=== PATIENT | male | born 2005 | race Caucasian/White ===

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

== ENCOUNTER 2025-04-25 08:32 | Outpatient (RCR) | payer OTHER, SELFPAY ==
--- NOTE | 2025-04-25 09:47 | PTOPEVAL1 ---
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 He reports he felt a pop in the front of the R shoulder. He reports he worked for the rest of the day and the day after and was not getting any better. He reports he went to urgent care for an x-ray. They thought he dislocated his shoulder. He was then sent to [place] to be on light duty where he got an MRI on 04/14/25 that did not show anything. He reports he does not currently have a follow up appointment. He reports that he has pain with dressing, sleeping, and reaching. He reports he ices his shoulder. 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 He is currently not working. Reported Pain Level Pain Score 7: Self Report Assessment PT Clinical Summary Mr. Maya is a 19 year old male who presents to PT with R shoulder pain following injury at work. He demonstrates decreased active and passive ROM of the R shoulder as well as decreased shoulder strength. He has increased pain with sleeping, dressing, and reaching and is current off work at this time. He will benefit from skilled PT to address impairments and return to work at [employer]. Plan of Care Interventions Electrical Stimulation,Hot Pack/Cold Pack,Manual Therapy,Neuro Re-education,Patient/Caregiver Education,Therapeutic Activities,Therapeutic Exercise PT Services Indicated Yes Treatment Frequency and 3x weekly for 12 visits Duration These treatments will address the objective and functional deficits as defined above. The patient will be advanced safely and appropriately in order for the patient to progress towards his/her prior level of function. Additional exercises will be introduced and as well as a comprehensive home exercise program upon discharge, if needed, ?to ensure carryover of functional gains achieved in the clinic. This treatment plan has been reviewed and agreement upon by the patient.
--- NOTE | 2025-04-28 07:11 | PCPTNOTE ---
Cancelled session. Has to find a new MD in this area.
--- NOTE | 2025-06-09 11:16 | OPREHPOC ---
Outpatient Therapy Plan of Care This is a Multidisciplinary Plan of Care that may contain components documented by all disciplines (PT, OT, and ST.) PT Problem 1 PT Problem #1 Knowledge Deficit PT Goal 1 Goal / Goal Update Patient to demonstrate independence with HEP Target Visit 6 Progress Met PT Problem 2 PT Problem #2 Pain PT Goal 1 Goal / Goal Update 1. Patient to report highest pain at 2/10 Target Visit 12 Progress Not Met PT Problem 3 PT Problem #3 Impaired Range of Motion PT Goal 1 Goal / Goal Update Patient to demonstrate R shoulder active flexion to 160 deg to return to reaching over head for house hold and work tasks Target Visit 12 Progress Not Met PT Problem 4 PT Problem #4 Impaired Strength PT Goal 1 Goal / Goal Update 1. Patient to demonstrate 5/5 R shoulder strength 2. Patient to demonstrate ability to lift 50# from floor to waist to return to work at [employer] Target Visit 12 Progress Not Met PT Problem 5 PT Problem #5 Impaired Functional Mobility PT Goal 1 Goal / Goal Update 1. Patient to improve [employer] disability to <10% 2. Patient to demonstrate ability to lift 20# overhead without increase in pain for house hold and work tasks. Target Visit 12 Progress Not Met
--- NOTE | 2025-06-09 11:16 | PTOPREEVAL ---
Assessment and note entered by JT File, PT Evaluation Information Assessment Status Re-evaluation Diagnosis R shoulder pain ICD-10 Condition Codes (PT) Pain in right shoulder M25.511 Other ICD-10 Condition Codes ( S13.101A PT) Onset 04/03/25 Subjective Information patient reports he still is unable to lift the arm above shoulder level. he reports he feels a sharp pain to the front of the R shoulder with use. Reported Pain Level Pain Score 4: Self Report Pain Score 5: Self Report Pain Score 5: Self Report Assessment PT Clinical Summary shea fernández presents to skilled PT for his 12th skilled therapy visit. he continues to report significant pain in the R shoulder. however, his R shoulder rom is improved. albeit, it does take some increased time and coaching to push passed the pain in the R shoulder to achieve his improved rom. patient continues to lack functional lifting and carrying strength, and reports significant pain at rest and with use. he would benefit from evaluation by ortho, but also continued skilled PT to continue to address his objective/functional deficits o return to prior level work activities and duties. Plan of Care Interventions Electrical Stimulation,Hot Pack/Cold Pack,Manual Therapy,Neuro Re-education,Patient/Caregiver Education,Therapeutic Activities,Therapeutic Exercise PT Services Indicated Yes Treatment Frequency and continue skilled PT 3x weekly for 12 more visits Duration These treatments will address the objective and functional deficits as defined above. The patient will be advanced safely and appropriately in order for the patient to progress towards his/her prior level of function. Additional exercises will be introduced and as well as a comprehensive home exercise program upon discharge, if needed, ?to ensure carryover of functional gains achieved in the clinic. This treatment plan has been reviewed and agreement upon by the patient.
--- NOTE | 2025-07-25 14:44 | PCPTNOTE ---
patient discharged due to return to work and feeling better
== END 2025-07-24 23:59 | disposition home or self-care (01) ==
LOC: CHSPT 08:32
PROVIDERS: Visit Provider Physician Assistant
DX: S43.401A Unspecified sprain of right shoulder joint, initial encounter (principal)
CPT/HCPCS: 97014; 97110; 97112; 97140; 97161; G0283